=== PATIENT | female | born 1945 | race Caucasian/White ===

== ENCOUNTER 2016-04-11 08:55 | Emergency (ER) | payer MEDICARE, MEDICAID ==
[2016-04-11 09:06] VITALS: TEMP 98.5; BMI 30.1
[2016-04-11 09:42] LABS: AUTOMATED BASOPHIL 0.9 % (0-2); AUTOMATED EOSINOPHIL 4.9 % (0-5); AUTOMATED LYMPH 27.2 % (17-44); AUTOMATED MONOCYTE 10.1 % (3-10); AUTOMATED NEUTROPHIL 56.9 % (45-76); MPV 8.1 fL (7.4-10.4)
[2016-04-11 09:46] LABS: AMORPHOUS OCC; LEUKOCYTES/URINE NEG (NEGATIVE); NITRITE/URINE NEG (NEGATIVE); RBC/URINE 0-2 (0-5); URINE OCCULT BLOOD NEG (NEG/TRACE); WBC/URINE 0-2 (0-5)
[2016-04-11 09:54] LABS: PARTIAL THROMB. TIME 31.3 SEC (22-35); PT-INR 1.3
[2016-04-11 09:57] LABS: BLOOD UREA NITROGEN 7 MG/DL (7-17); CALCIUM 8.8 MG/DL (8.4-10.2); CALCULATED OSMOLALITY 267 MOs/Kg (270-290); CHLORIDE 104 mEq/L (98-107); GLUCOSE 100 MG/DL (70-99); SODIUM LEVEL 140 mEq/L (137-146); TOTAL PROTEIN 6.7 G/DL (6.3-8.2)
--- NOTE | 2016-04-11 10:02 | DIRPT ---
CLINICAL DATA: Slurred speech. History of breast carcinoma EXAM: CT HEAD WITHOUT CONTRAST TECHNIQUE: Contiguous axial images were obtained from the base of the skull through the vertex without intravenous contrast. COMPARISON: March 10, 2015 FINDINGS: The ventricles are normal in size and configuration. There is no intracranial mass, hemorrhage, extra-axial fluid collection, or midline shift. There is patchy small vessel disease in the centra semiovale bilaterally. 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 There is no new diamond-white compartment lesion. No acute infarct evident. Bony calvarium appears intact. The mastoid air cells are clear. No intraorbital lesions are appreciable. IMPRESSION: Stable periventricular small vessel disease. Prior small infarct anterior left centrum semiovale. No acute infarct evident. No hemorrhage or mass effect. Electronically Signed By: Simon Pimentel III, M.D. On: 04/11/2016 09:59
[2016-04-11] MEDS ORDERED: ASPIRIN 325 MG TAB PO ONE (10:37)
[2016-04-11] MEDS ORDERED: hydrALAZINE 20 MG/ML VIAL IV ONE (10:37)
--- NOTE | 2016-04-11 10:41 | EDPRACDOC ---
- General Information Chief Complaint: Blood Pressure (Problems) Stated Complaint: HYPERTENSION Time Seen by Provider: 04/11/16 09:14 Information Source: Patient Mode Of Arrival: Car Home Medications: Home Medications Amlodipine Besylate [Norvasc] 5 mg PO DAILY 04/11/16 Letrozole [Femara] 2.5 mg PO DAILY 04/11/16 Metoprolol Succinate (XL) [Toprol Xl] 100 mg PO DAILY 04/11/16 Potassium Chloride [Klor-Con M20] 20 meq PO DAILY 04/11/16 Rivaroxaban [Xarelto] 20 mg PO DAILY 04/11/16 Allergies/Adverse Reactions: Allergies Allergy/AdvReac Type Severity Reaction Status Date / Time lisinopril Allergy Severe Angioedema* Verified 01/08/15 08:05 rosuvastatin calcium Allergy See Verified 01/08/15 08:05 [From Johnie] Comments - History of Present Illness Onset: last pm HPI: PT COMES IN TODAY WITH COMPLAINTS OF HTN. THE PT SAID THAT 2 WEEKS AGO SHE DEVELOPED SOME VISION PROBLEMS. SHE SAID IT WAS LIKE LOOKING THROUGH A KALEIDOSCOPE. EVER SINCE THEN, SHE HAS HAD TROUBLE WITH HTN. THE PT SAW HER [employer] WHO ADDED AMLODIPINE 5 MG TO HER METOPROLOL. 1ST DOSE WAS LAST NIGHT. THE PT SAID THAT SHE WAS TALKING TO HER DAUGHTER ON THE PHONE AND WAS INITIALLY NL. THEN, SHE STARTED HAVING TROUBLE TALKING. SHE SAID THAT IT SOUNDED LIKE GIBBERISH. THAT CLEARED UP AFTER A FEW MINUTES. PT TOOK HER BP MEDS AROUND 0530 AND HER BP REMAINED ELEVATED. Symptoms: Reports: Moderate Circumstances: Reports: Spontaneous Onset Relevent History of: Reports: Hypertension Hypertension Treatment: Reports: Taking Medication Recent Use of: Reports: None - Treatment Prior to ED Arrival Reported Medications/Treatment [employer] Medications [employer] (Medication/ XERALTO AT 0530 Dose/Time) ED Past Medical History - Patient Medical History Cardiac History: Reports: Coronary Artery Disease, Atrial Fibrillation, Hypertension, Congestive Heart Failure, Cardiac Catheterization, Hypercholesterolemia. Denies: Heart Attack GI/ History: Reports: Gastroesophageal Reflux. Denies: Pancreatitis Musculoskeletal History: Reports: Arthritis (RIGHT HIP) Psychological History: Reports: Depression, Anxiety Systemic History: Reports: Cancer (LT BREAST CANCER). Denies: Anemia, Lupus Surgical History: Reports: Cardiac Catheterization, Tonsillectomy/Adnoidectomy, Other (LEFT LUMPECTOMY) - Family Medical History Reports: Hypertension (EVERYBODY), Diabetes (BROTHER), Cancer (MOTHER BREAST, AUNTS LEUKEMIA), Stroke (BROTHER). Denies: Cardiac Disorders (MOTHER) - Social Medical History Smoking Status: Never smoker ETOH: None Substance Abuse: None Lives In: Home EDM Review of Systems - Review of Systems ROS Negative Except as Marked: Yes All systems reviewed and were negative except as marked Cardiovascular: Other (HTN) Neurological: Speech Difficulty - Physical Exam Constitutional: Alert (Awake), No apparent distress Oriented to: Time, Person, Place Last recorded Vital Signs: Last Vital Signs Temp 98.5 F 04/11/16 08:57 Pulse 75 04/11/16 10:00 Resp 18 04/11/16 10:00 BP 174/91 04/11/16 10:00 Pulse Ox 97 04/11/16 10:00 Oxygen Pulse Oxygen Saturation 97 O2 Device Room Air Oxygen Flow Rate Fraction of Inspired Oxygen ( FIO2) - HEENT Head: Normal ( normocephalic) Eye Exam: Normal (PERRL, EOMI, Sclera white) Oropharynx: Normal (Pharynx:Moist without exudate,Gums-no swelling) ENT EAC: Normal TMJ: Normal Nose: No Symptoms Reported (septum midline) Neck: Normal (FROM, trachea at midline) - Respiratory/Cardiovascular Respiratory: Normal - CTA (BBS clear to auscultation without adventitious sounds ) Cardiovascular: Irregular - GI Auscultation: Normal (NABS) Palpation: Normal (Soft,No rebound or guarding, non distended) Tenderness: Non tender Cárdenas's Sign: Negative - Musculoskeletal Back: Normal (Non-Tender) Extremities: Normal (Normal tone, Pulses 2+ No cyanosis or edema, FROM) - Integumentary Skin: Normal, Warm, Dry Lymphatics: Normal (no adenopathy) - Neurologic Memory Impaired: Normal Motor Function: Normal (Normal tone, Pulses 2+ No cyanosis or edema, FROM) Cranial Nerve: Normal (CN II-X11 intact sensation, strength 5/5) Cerebellar: Normal Mood Description: Normal Perception: Normal - Re-evaluation Re-evaluation 1 Re-evaluation Time: 11:57 (IMPROVED. NO NEURO SIGNS.) - Results 04/11/16 09:25 04/11/16 09:25 WBC 4.9 xk/uL (3.8-10.8) 04/11/16 09:25 RBC 4.38 xM/uL (4.20-5.40) 04/11/16 09:25 Hgb 13.7 g/dL (12.0-16.0) 04/11/16 09:25 Hct 40.7 % (36-47) 04/11/16 09:25 MCV 93 fL (81-99) 04/11/16 09:25 MCH 31.4 pg (27-32) 04/11/16 09:25 MCHC 33.7 g/dl (33-36) 04/11/16 09:25 RDW 12.6 % (11.5-14.5) 04/11/16 09:25 Plt Count 150 xk/uL (130-400) 04/11/16 09:25 MPV 8.1 fL (7.4-10.4) 04/11/16 09:25 Neut % (Auto) 56.9 % (45-76) 04/11/16 09:25 Lymph % (Auto) 27.2 % (17-44) 04/11/16 09:25 Tift % (Auto) 10.1 % (3-10) H 04/11/16 09:25 Eos % (Auto) 4.9 % (0-5) 04/11/16 09:25 Baso % (Auto) 0.9 % (0-2) 04/11/16 09:25 Absolute Neuts (auto) 2.74 xk/uL (1.7-8.2) 04/11/16 09:25 Absolute Lymphs (auto) 1.32 xk/uL (0.65-4.75) 04/11/16 09:25 PT 13.3 SEC (9.2-11.2) H 04/11/16 09:25 INR 1.3 04/11/16 09:25 APTT 31.3 SEC (22-35) 04/11/16 09:25 Sodium 140 mEq/L (137-146) 04/11/16 09:25 Potassium 3.7 mEq/L (3.5-5.1) 04/11/16 09:25 Chloride 104 mEq/L (98-107) 04/11/16 09:25 Carbon Dioxide 27 mMOL/L (22-33) 04/11/16 09:25 Anion Gap 13 mEq/L (8-16) 04/11/16 09:25 BUN 7 MG/DL (7-17) 04/11/16 09:25 Creatinine 0.60 MG/DL (0.52-1.04) 04/11/16 09:25 Estimated GFR (MDRD) > 60 mL/min (>=60) 04/11/16 09:25 Glucose 100 MG/DL (70-99) H 04/11/16 09:25 Calculated Osmolality 267 MOs/Kg (270-290) L 04/11/16 09:25 Calcium 8.8 MG/DL (8.4-10.2) 04/11/16 09:25 Corrected Calcium 9.0 MG/DL (8.4-10.2) 04/11/16 09:25 Total Bilirubin 0.7 MG/DL (0.2-1.3) 04/11/16 09:25 AST 25 IU/L (14-36) 04/11/16 09:25 ALT 24 IU/L (9-52) 04/11/16 09:25 Alkaline Phosphatase 76 IU/L (55-165) 04/11/16 09:25 Troponin I < 0.01 ng/mL (<.04) 04/11/16 09:25 Total Protein 6.7 G/DL (6.3-8.2) 04/11/16 09:25 Albumin 3.8 G/DL (3.5-5.0) 04/11/16 09:25 Urine Color Yellow 04/11/16 09:05 Urine Clarity Hazy 04/11/16 09:05 Urine pH 7.0 (5.0-8.0) 04/11/16 09:05 Ur Specific [place] 1.005 (1.003-1.035) 04/11/16 09:05 Urine Protein Neg (NEG/TRACE) 04/11/16 09:05 Urine Glucose (UA) Neg (NEGATIVE) 04/11/16 09:05 Urine Ketones Neg (NEGATIVE) 04/11/16 09:05 Urine Occult Blood Neg (NEG/TRACE) 04/11/16 09:05 Urine Nitrite Neg (NEGATIVE) 04/11/16 09:05 Urine Bilirubin Neg (NEGATIVE) 04/11/16 09:05 Urine Urobilinogen 0.2 MG/DL (0-1) 04/11/16 09:05 Ur Leukocyte Esterase Neg (NEGATIVE) 04/11/16 09:05 Urine RBC 0-2 (0-5) 04/11/16 09:05 Urine WBC 0-2 (0-5) 04/11/16 09:05 Ur Epithelial Cells Occ 04/11/16 09:05 Amorphous Sediment Occ 04/11/16 09:05 Urine Bacteria Few (NEG/FEW) 04/11/16 09:05 Urine Mucus Occ (NEG/OCC) 04/11/16 09:05 Lab Results 04/11/16 04/11/16 04/11/16 09:25 09:25 09:25 WBC 4.9 RBC 4.38 Hgb 13.7 Hct 40.7 MCV 93 MCH 31.4 MCHC 33.7 RDW 12.6 Plt Count 150 MPV 8.1 Neut % (Auto) 56.9 Lymph % (Auto) 27.2 Tift % (Auto) 10.1 H Eos % (Auto) 4.9 Baso % (Auto) 0.9 Absolute Neuts (auto) 2.74 Absolute Lymphs (auto) 1.32 PT 13.3 H INR 1.3 APTT 31.3 Sodium 140 Potassium 3.7 Chloride 104 Carbon Dioxide 27 Anion Gap 13 BUN 7 Creatinine 0.60 Estimated GFR (MDRD) > 60 Glucose 100 H Calculated Osmolality 267 L Calcium 8.8 Corrected Calcium 9.0 Total Bilirubin 0.7 AST 25 ALT 24 Alkaline Phosphatase 76 Troponin I < 0.01 Total Protein 6.7 Albumin 3.8 Urine Color Urine Clarity Urine pH Ur Specific [place] Urine Protein Urine Glucose (UA) Urine Ketones Urine Occult Blood Urine Nitrite Urine Bilirubin Urine Urobilinogen Ur Leukocyte Esterase Urine RBC Urine WBC Ur Epithelial Cells Amorphous Sediment Urine Bacteria Urine Mucus 04/11/16 09:05 WBC RBC Hgb Hct MCV MCH MCHC RDW Plt Count MPV Neut % (Auto) Lymph % (Auto) Tift % (Auto) Eos % (Auto) Baso % (Auto) Absolute Neuts (auto) Absolute Lymphs (auto) PT INR APTT Sodium Potassium Chloride Carbon Dioxide Anion Gap BUN Creatinine Estimated GFR (MDRD) Glucose Calculated Osmolality Calcium Corrected Calcium Total Bilirubin AST ALT Alkaline Phosphatase Troponin I Total Protein Albumin Urine Color Yellow Urine Clarity Hazy Urine pH 7.0 Ur Specific [place] 1.005 Urine Protein Neg Urine Glucose (UA) Neg Urine Ketones Neg Urine Occult Blood Neg Urine Nitrite Neg Urine Bilirubin Neg Urine Urobilinogen 0.2 Ur Leukocyte Esterase Neg Urine RBC 0-2 Urine WBC 0-2 Ur Epithelial Cells Occ Amorphous Sediment Occ Urine Bacteria Few Urine Mucus Occ - EKG EKG #1 EKG Time: 09:17 -: Yes EKG interpreted by me Rate: bpm: 85 Clemons: Normal Rhythm: Afib Block: None Hypertrophy: None ST: Normal Comparison: 05/23/15 - Diagnostic Imaging Head Image interpreted by: Radiologist Stable periventricular small vessel disease. Prior small infarct anterior left centrum semiovale. No acute infarct evident. No hemorrhage or mass effect. Chest Image interpreted by: Radiologist Stable periventricular small vessel disease. Prior small infarct anterior left centrum semiovale. No acute infarct evident. No hemorrhage or mass effect. Decision Time to Discharge: 11:57 - Departure Yes I personally saw and evaluated the patient. Disposition: Home Condition: Fair Final Diagnosis: TIA (transient ischemic attack), Hypertensive urgency Instructions: Chronic Hypertension (ED), Transient Ischemic Attack (ED) Education/Counseling Given To: Patient Education/Counseling Given Regarding: Diagnosis, Treatment, Follow Up Referrals: Alejandrina Arreguin PA [Primary Care Provider] - One Week Omid Cornell MD [NonStaff] - One Week Additional Instructions: INCREASE NORVASC TO 10 MG. TAKE ASA 81 MG DAILY.
[2016-04-11] MEDS ORDERED: hydrALAZINE 20 MG/ML VIAL ONE (10:43)
[2016-04-11] MEDS ORDERED: ASPIRIN 325 MG TAB ONE (10:44)
[2016-04-11 12:01] VITALS: BP 177/95; PULSE 80
--- NOTE | 2016-04-11 14:05 | DIRPT ---
CLINICAL DATA: Hypertension. Recent dysarthria which resolved. EXAM: PORTABLE CHEST 1 VIEW COMPARISON: 05/23/2015 FINDINGS: Mild enlargement of the cardiopericardial silhouette. Indistinct upper zone pulmonary vasculature, faint Ashish B-lines. No airspace edema or pleural effusion identified. IMPRESSION: 1. Mild enlargement of the cardiopericardial silhouette with pulmonary venous hypertension and borderline interstitial edema. Electronically Signed By: Noé Dumont M.D. On: 04/11/2016 10:12
== END 2016-04-11 12:13 | disposition home or self-care (01) ==
LOC: ED 08:55
DX: G45.9 Transient cerebral ischemic attack, unspecified (principal); I16.0 Hypertensive urgency; I25.10 Atherosclerotic heart disease of native coronary artery without angina pectoris; I48.91 Unspecified atrial fibrillation; E78.00 Pure hypercholesterolemia, unspecified; I50.9 Heart failure, unspecified; K21.9 Gastro-esophageal reflux disease without esophagitis; Z79.01 Long term (current) use of anticoagulants; Z79.899 Other long term (current) drug therapy
CPT/HCPCS: 36415; 70450; 71010; 80053; 81001; 84484; 85025; 85610; 85730; 93005; 99284; A9270; J0360; J3490